=== PATIENT | female | born 1980 | race Caucasian/White ===

== ENCOUNTER 2016-10-02 11:00 | Outpatient (CLI) | payer OTHER ==
--- NOTE | 2016-10-03 14:15 | Ultrasound Report ---
REVISED: THIS REPORT WAS ORIGINALLY SIGNED ON 10/02/2016 @ 2137 ORDERS LINKED ON 10/11/2016 BILATERAL DIGITAL DIAGNOSTIC MAMMOGRAM AND BILATERAL BREAST ULTRASOUND: 2016 CLINICAL HISTORY: A 36-year-old female with a palpable lump in her right breast. Patient has no family history of breast cancer. Patient has had no prior breast surgeries. COMPARISON: None. TECHNIQUE: Craniocaudad and oblique lateral views of each breast were obtained with [employer] full field digital mammography. Coned down compression craniocaudad view of the left breast was obtained. FINDINGS: Extremely dense breasts are noted bilaterally. There is a 2 cm in diameter mass suggested in the upper-outer quadrant of the right breast at the 10 o'clock position, 2.5 cm posterolateral to the right nipple. This most likely represents patient's palpable mass. Recommend a right breast ultrasound for further evaluation. A 0.9 cm mass is noted along the medial side of the left subareolar region, less than 1 cm posterior to the left nipple. Recommend a left breast ultrasound for further evaluation. No significant clusters of calcification are seen. No additional masses are noted. BILATERAL BREAST ULTRASOUND Right breast ultrasound demonstrates a 1.6 cm x 1.5 cm x 1.0 cm well- circumscribed benign cyst in the 9 o'clock position of the right breast, 2 cm posterolateral to the right nipple. This cyst represents patient's palpable mass. Left breast ultrasound demonstrates a 1.0 cm x 0.6 cm x 0.9 cm cyst cluster adjacent to the medial aspect of the left subareolar region. This finding represents the mass of concern on patient's mammogram. Patient's palpable mass represents a benign cyst measuring 1.6 cm x 1.5 cm x 1.0 cm in the 9 o'clock position of the right breast. A small cluster of cysts are noted both on mammography and ultrasound in the medial aspect of the left subareolar region. IMPRESSION: PATIENTS PALPABLE MASS IN THE 9 O'CLOCK POSITION OF THE RIGHT BREAST REPRESENTS A 2 CM BREAST CYST. THERE IS A 1 CM BENIGN CYST CLUSTER IN THE MEDIAL ASPECT OF THE LEFT SUBAREOLAR REGION. BIRADS CATEGORY: 2, BENIGN FINDING. RECOMMENDATION: ANNUAL BILATERAL SCREENING MAMMOGRAPHY. COMMENT: Dr. Chauhan informed the patient of the benign findings. JOB #: [id number] EXT JOB #: [id number] AVA
== END 2016-10-02 11:01 | disposition home or self-care (01) ==
LOC: DI 11:00
PROVIDERS: ATTEND Nurse Practitioner Family
DX: N60.01 Solitary cyst of right breast (principal); N60.12 Diffuse cystic mastopathy of left breast
CPT/HCPCS: 76642; 77066

== ENCOUNTER 2019-07-29 19:07 | Emergency (ER) | payer OTHER ==
--- NOTE | 2019-07-29 21:01 | ED Physician Documentation ---
PD HPI BACK PAIN - Stated complaint Stated Complaint: BACK PX - Chief complaint Chief Complaint: Back Pain - History obtained from History obtained from: Patient (the patient is a 38 y/o f who p/w a cc of acute on chronic back pain. 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 She denies anyBowel or bladder dysfunction denies any saddle anesthesia.Denies any history of IV drug abuse denies fevers, headache, neck pain, rashes. 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 and then felt diffuse back spasms of her bilateral paraspinal lumbar spine.She tried taking ibuprofen but she continues to have muscle spasms.Patient denies any dysuria, hematuria, flank pain and reports she is not currently .) Review of Systems Constitutional: reports: Reviewed and negative Eyes: reports: Reviewed and negative Ears: reports: Reviewed and negative Nose: reports: Reviewed and negative Throat: reports: Reviewed and negative Cardiac: reports: Reviewed and negative Respiratory: reports: Reviewed and negative GI: reports: Reviewed and negative : reports: Reviewed and negative Skin: reports: Reviewed and negative Musculoskeletal: reports: Back pain Neurologic: reports: Reviewed and negative Psychiatric: reports: Reviewed and negative Endocrine: reports: Reviewed and negative Immunocompromised: reports: Reviewed and negative PD PAST MEDICAL HISTORY - Past Medical History Past Medical History: Yes HEENT: Other Musculoskeletal: Chronic back pain, Other Other Past Medical History: DJD; Ocular CA - Past Surgical 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 - Present Medications Home Medications: Ambulatory Orders Medication Instructions Recorded Confirmed diazePAM [Valium] 5 mg PO TID PRN #7 tablet 07/29/19 - Allergies Allergies/Adverse Reactions: Allergies Allergy/AdvReac Type Severity Reaction Status Date / Time No Known Drug Allergies Allergy Verified 07/29/19 19:20 - Social History Does the pt smoke?: No Smoking Status: Never smoker Does the pt drink ETOH?: Yes Does the pt have substance abuse?: No - Immunizations Immunizations are current?: Yes - POLST Patient has POLST: No PD ED PE NORMAL - Vitals Vital signs reviewed: Yes - General General: Alert and oriented X 3, No acute distress, Well developed/nourished - HEENT HEENT: Atraumatic, PERRL, Moist mucous membranes, Pharynx benign - Neck Neck: Supple, no meningeal sign, No JVD - Cardiac Cardiac: RRR, No murmur, Strong equal pulses - Respiratory Respiratory: No respiratory distress, Clear bilaterally - Abdomen Abdomen: Normal bowel sounds, Soft, Non tender, Non distended, No organomegaly - Rectal Rectal: Pt declined - Back Back: No CVA TTP, No spinal TTP, Other (There is bilateral lumbar paraspinal muscle spasms present. She is able to ambulate she can stand on her heels she can to stand on her toes. Her strength is 5 out of 5 in bilateral upper and lower extremities proprioception is intact of bilateral great toes. Reflexes are 2+ and symmetrical bilateral patellar and Achilles.Negative straight leg test bilaterally.There is no midline tenderness to palpation or step-offs or deformities of the thoracic, lumbar or sacral spine.) - Derm Derm: Normal color, Warm and dry, No rash - Extremities Extremities: No deformity, No tenderness to palpate, Normal ROM s pain, No edema, No calf tenderness / cord - Neuro Neuro: Alert and oriented X 3 - Psych Psych: Normal mood, Normal affect Results - Vitals Vitals: Vital Signs - 24 hr 07/29/19 19:20 Temperature 36.5 C Heart Rate 96 Respiratory 116 H Rate Blood Pressure 136/88 H O2 Saturation 98 Oxygen O2 Source Room air PD MEDICAL DECISION MAKING - ED course Complexity details: considered differential (Acute on chronic back pain, no red flags on history or exam to suggest any emergenct causes of back pain.) Departure - Departure Disposition: 01 Home, Self Care Clinical Impression: Back pain Qualifiers: Back pain location: back pain in unspecified location Chronicity: unspecified Back pain laterality: unspecified Qualified Code(s): M54.9 - Dorsalgia, unspecified Condition: Stable Instructions: ED Low Back Pain Injury Follow-Up: LUPIS SALINAS ARNP [Primary Care Provider] - Tomorrow Prescriptions: diazePAM [Valium] 5 mg PO TID PRN #7 tablet PRN Reason: Spasms
[2019-07-29] MEDS ORDERED: diazePAM 5 MG TABLET PO STA (21:15)
[2019-07-29 21:53] VITALS: BP 130/80
== END 2019-07-29 21:50 | disposition home or self-care (01) ==
LOC: ED 19:07
DX: M54.9 Dorsalgia, unspecified (principal)
CPT/HCPCS: 99283; 99284; A9270